=== PATIENT | female | born 1945 | race Caucasian/White ===

== ENCOUNTER 2016-06-19 09:31 | Outpatient (CLI) | payer MEDICARE ==
[2016-06-19 12:29] LABS: #Basophils 0.1 thou/uL (0.0-0.2); #Eosinphils 0.3 thou/uL (0.0-0.7); #Lymphocytes 2.1 thou/uL (1.20-3.40); #Monocytes 0.5 thou/uL (0.11-0.59); #Neutrophils 4.1 thou/uL (1.40-6.50); %Basophils 1.5 % (0.0-1.0); %Eosinophils 3.7 % (0.0-10.0); %Lymphocytes 29.8 % (21.0-51.0); %Monocytes 6.4 % (0.0-10.0); Hematocrit 46.8 % (36.0-47.0); Mean Platelet Volume 6.6 fL (7.4-10.4); Red Blood Cell (RBC) Count 5.09 mill/uL (4.20-5.40)
[2016-06-19 12:56] LABS: ALT (SGPT) 25 U/L (0-55); AST (SGOT) 20 U/L (5-34); Alkaline Phosphatase 63 U/L (40-150); Anion Gap 15 mmol/L (10-20); BUN (Urea Nitrogen) 18 mg/dL (9.8-20.1); Bilirubin, Direct 0.3 mg/dL (0.1-0.3); Bilirubin, Total 0.8 mg/dL (0.2-1.2); Calc. Creatinine Clearance 0 mL/min (70-130); Calcium 8.5 mg/dL (7.8-10.44); Carbon Dioxide 26 mmol/L (23-31); Chloride 109 mmol/L (98-107); Estimated GFR-MDRD 58; LDL Cholesterol, Calculated 72 mg/dL; Protein, Total 6.5 g/dL (5.8-8.1)
[2016-06-19 13:10] LABS: Hemoglobin A1c 6.1 % (4.0-6.0)
== END 2016-06-19 09:32 | disposition home or self-care (01) ==
LOC: NAVSJIPCSP 09:31
PROVIDERS: ATTEND Family Medicine
DX: E78.5 Hyperlipidemia, unspecified (principal); I10 Essential (primary) hypertension; E11.9 Type 2 diabetes mellitus without complications; E03.2 Hypothyroidism due to medicaments and other exogenous substances; Z79.899 Other long term (current) drug therapy
CPT/HCPCS: 36415; 80048; 80061; 80076; 83036; 84443; 85025

== ENCOUNTER 2016-11-10 10:39 | Outpatient (CLI) | payer MEDICARE ==
[2016-11-10 14:21] LABS: #Basophils 0.1 thou/uL (0.0-0.2); #Eosinphils 0.4 thou/uL (0.0-0.7); #Lymphocytes 1.9 thou/uL (1.20-3.40); #Monocytes 0.5 thou/uL (0.11-0.59); #Neutrophils 4.7 thou/uL (1.40-6.50); %Basophils 1.4 % (0.0-1.0); %Eosinophils 5.2 % (0.0-10.0); %Monocytes 6.7 % (0.0-10.0); %Neutrophils 61.7 % (42.0-75.0); Mean Corpuscular HGB CONC 31.7 g/dL (32.0-36.0); Mean Corpuscular Volume 91.4 fl (81.0-99.0); Mean Platelet Volume 7.1 fL (7.4-10.4); Platelet Count 227 thou/uL (130-400); Red Blood Cell (RBC) Count 5.19 mill/uL (4.20-5.40); White Blood Cell (WBC) Count 7.6 thou/uL (4.8-10.8)
[2016-11-10 14:34] LABS: ALT (SGPT) 25 U/L (8-55); AST (SGOT) 25 U/L (5-34); Alkaline Phosphatase 57 U/L (40-150); Anion Gap 17 mmol/L (10-20); BUN (Urea Nitrogen) 20 mg/dL (9.8-20.1); Bilirubin, Direct 0.4 mg/dL (0.1-0.3); Calc. Creatinine Clearance 0 mL/min (70-130); Calcium 8.5 mg/dL (7.8-10.44); Carbon Dioxide 26 mmol/L (23-31); Cardiac Risk 3.4 (Less than 4.5); Chloride 106 mmol/L (98-107); Cholesterol 110 mg/dl (< 200 Desired); Estimated GFR-MDRD 60; Glucose 98 mg/dL (80-115); HDL Cholesterol 32 mg/dL (>60 Neg Risk); LDL Cholesterol, Calculated 62 mg/dL; Potassium 4.7 mmol/L (3.5-5.1); Protein, Total 6.7 g/dL (6.0-8.3); Sodium 144 mmol/L (136-145); Triglycerides 78 mg/dL (Less than 150)
== END 2016-11-10 10:40 ==
LOC: NAVSJIPCSP 10:39
PROVIDERS: ATTEND Family Medicine
DX: E78.5 Hyperlipidemia, unspecified (principal); I10 Essential (primary) hypertension; E11.9 Type 2 diabetes mellitus without complications; E03.2 Hypothyroidism due to medicaments and other exogenous substances; M65.312 Trigger thumb, left thumb; Z79.899 Other long term (current) drug therapy
CPT/HCPCS: 36415; 80048; 80061; 80076; 83036; 84443; 85025

== ENCOUNTER 2016-11-25 15:43 | Outpatient (CLI) | payer MEDICARE ==
--- NOTE | 2016-11-25 16:50 | RAD ---
RADIOGRAPH OF CHEST TWO VIEWS: Comparison: Not available. Indication: Wheezing, cough. FINDINGS: No lobar consolidation, effusion, or pneumothorax. There is thoracic kyphosis with scattered degener ative change. Cardiac silhouette is within normal limits of size. IMPRESSION: No focal consolidation. POS: [id number]
== END 2016-11-25 15:44 | disposition home or self-care (01) ==
LOC: NAV RAD 15:43
PROVIDERS: ATTEND Family Medicine
DX: R06.2 Wheezing (principal)
CPT/HCPCS: 71020